=== PATIENT | female | born 1995 | race Two or more races ===

== ENCOUNTER 2022-11-07 00:04 | Inpatient (IN) | payer OTHER ==
[~2022-11-07] VITALS: Ht 149.9 cm; Wt 3.6 kg
[2022-11-07] MEDS ORDERED: PRENATAL TABLE1 EAC4 PO (01:42)
[2022-11-07] MEDS ORDERED: IRON325 MG PO (01:42)
[2022-11-07] MEDS ORDERED: NIFEDIPINE20 MG PO (01:43)
== END 2022-11-10 15:17 | DRG 785 ==
LOC: OB/GYN 00:04 → LDR 00:04 → O/R 09:06 → OB/GYN 09:59
PROVIDERS: ADMIT Obstetrics & Gynecology Obstetrics; ATTEND Obstetrics & Gynecology Obstetrics
PROC: 0UB70ZZ Excision of Bilateral Fallopian Tubes, Open Approach (ICD-10-PCS; 2022-11-07)
PROC: 4A1HXCZ Monitoring of Products of Conception, Cardiac Rate, External Approach (ICD-10-PCS; 2022-11-07)
PROC: 10D00Z1 Extraction of Products of Conception, Low, Open Approach (ICD-10-PCS; principal; 2022-11-07 09:00)
DX: O34.211 Maternal care for low transverse scar from previous cesarean delivery (principal); Z3A.37 37 weeks gestation of pregnancy; Z37.0 Single live birth; Z30.2 Encounter for sterilization; Z20.822 Contact with and (suspected) exposure to COVID-19